=== PATIENT | female | born 1965 | race African-American/Black ===

== ENCOUNTER → 2016-09-06 | Outpatient (CLI) | payer OTHER ==
--- NOTE | ~2016-09-06 | MY11 ---
[facility] A Service of [facility] RADIOLOGY TEXT RESULTS PATIENT: JAYRO MATUTE LOCATION: [facility] : 61 UNIT #: [id number] AGE: [address]: Chinmay Gross MD SEX: F ORDER DR: [id number] [facility] [address] [facility] [place], [place] [address] [id number] O MR#: [id number] Acc #: [id number] NAME: JAYRO MATUTE : 1965 SEX: F STUDY DATE/TIME: 09/06/2016 11:45 UNIT: [facility] ROOM: STUDY DESCRIPTION: MY Mammogram Screening Dig Thomas Attending Physician: Chinmay Gross M.D. Referring Physician: Chinmay Gross M.D. Ordering Physician: Chinmay Gross M.D. Primary Care Physician: Chinmay Gross M.D. MEDICAL IMAGING REPORT This report is preliminary unless electronic signature is present EXAM Digital screening mammogram 09/06/2016, [facility] HISTORY 51-year-old woman no risk elevation. Annual screen. COMPARISON 02/13/2011, 06/24/2014 TECHNIQUE Digital imaging of each breast was completed utilizing multiple images to image the large breast structures. Review includes FDA-approved CAD device. FINDINGS Once again the breast parenchyma is fatty replaced. There are now several groupings of suspicious microcalcifications identified in the right breast. These were not present on prior images of 2005 and 2010 and very faintly imaged 2014. They will require additional imaging and sampling. This would include spot compression views along with a true lateral projection. Stereotactic guided sampling will, I am sure be indicated with this presentation. The left breast remains negative and stable. IMPRESSION Incomplete mammographic evaluation. Additional right breast imaging and tissue sampling is indicated. See full report. Patient's over the age of 40 are entered into a reminder system with target due date for the next mammogram. A result letter will be sent to the patient. BIRADS: 0 Needs additional imaging evaluate and/or prior mammograms for [facility] A Service [facility] RADIOLOGY TEXT RESULTS PATIENT: JAYRO MATUTE LOCATION: [facility] : 61 UNIT #: [id number] AGE: [address]: Chinmay Gross MD SEX: F ORDER DR: samantha. STAT * RESULT Dictated by... Nic Gutierres M.D. THIS IS AN ELECTRONICALLY VERIFIED REPORT Nic Gutierres M.D. at 09/06/2016 2:48 PM JBB/to TD: 09/06/2016 12:43 JOB #: [id number] MEDICAL IMAGING REPORT Page 1 of 1 COPY
== END | disposition home or self-care (01) ==
LOC: CWCC 11:10
DX: Z12.31 Encounter for screening mammogram for malignant neoplasm of breast (principal); R92.8 Other abnormal and inconclusive findings on diagnostic imaging of breast
CPT/HCPCS: G0202

== ENCOUNTER → 2016-09-20 | Outpatient (CLI) | payer OTHER ==
--- NOTE | ~2016-09-20 | MY22 ---
[facility] A Service of [facility] RADIOLOGY TEXT RESULTS PATIENT: JAYRO MATUTE LOCATION: [facility] : 61 UNIT #: [id number] AGE: [address]: Chinmay Gross MD SEX: F ORDER DR: [id number] [facility] [address]. [place], [place] [address] [id number] O MR#: [id number] Acc #: [id number] NAME: JAYRO MATUTE : 1965 SEX: F STUDY DATE/TIME: 09/20/2016 10:41 UNIT: [facility] ROOM: STUDY DESCRIPTION: MY BX Breast 1st Lesion Stereo Attending Physician: Chinmay Gross M.D. Ordering Physician: Chinmay Gross M.D. Primary Care Physician: Chinmay Gross M.D. MEDICAL IMAGING REPORT This report is preliminary unless electronic signature is present REVISED REPORT SEE ADDENDUM EXAM Stereotactic breast biopsy 09/20 INDICATIONS Abnormal suspicious calcifications in the right breast seen on mammogram today. Patient presents for tissue diagnosis. PROCEDURE Informed consent was obtained and time-out was performed. The patient was placed in the prone position on the stereotactic biopsy table. The breast was compressed cranial caudally. A cluster of microcalcifications were localized from an inferior approach. The skin was cleansed with a ChloraPrep. 1% lidocaine without epinephrine used for local anesthesia in the skin and deep tissues. A small skin incision was made. The 9-gauge Genesis biopsy needle was then advanced into the pre fire position. Pre fire images demonstrated appropriate needle heading toward the calcifications. The guide needle was then fired into biopsy position. Post-fire images also demonstrated appropriate needle placement. Then, multiple 9-gauge vacuum-assisted core biopsies were obtained at target depth in a concentric fashion. Multiple calcifications are seen within multiple specimens on the specimen radiograph. 1% lidocaine with epinephrine was infused through the needle during the biopsy. There are no immediate complications. Biopsy clip was left in place. It is in the expected location on the postprocedure mammogram. Postprocedure mammogram demonstrates no significant hematoma. IMPRESSION Successful stereotactic biopsy of suspicious calcifications in the lower inner right breast. Biopsy marker in the expected location. Multiple STS. [facility] A Service of [facility] & [facility] RADIOLOGY TEXT RESULTS PATIENT: JAYRO MATUTE LOCATION: [facility] : 61 UNIT #: [id number] AGE: [address]: Chinmay Gross MD SEX: F ORDER DR: calcifications are seen in the specimen. Dictated by... Nate Johnson Jr., M.D. Kristin TD: 09/20/2016 12:21 JOB #: [id number] ADDENDUM Pathology results have finally been provided to me. 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 Please see the full pathology report. Imaging results and pathology results are concordant. Surgical and oncological consultation recommended. Please note that there is a relatively wide potential area of disease involvement in the medial hemisphere of the breast. STAT * RESULT Dictated by... Nate Johnson Jr., M.D. THIS IS AN ELECTRONICALLY VERIFIED REPORT Nate Johnson Jr., M.D. at 10/24/2016 4:23 PM Dequan TD: 10/24/2016 08:08 JOB #: [id number] MEDICAL IMAGING REPORT Page 1 of 1 COPY
--- NOTE | ~2016-09-20 | MY8 ---
[facility] A Service of [facility] RADIOLOGY TEXT RESULTS PATIENT: JAYRO MATUTE LOCATION: [facility] : 61 UNIT #: [id number] AGE: [address]: Chinmay Gross MD SEX: F ORDER DR: [id number] [facility] [address] [facility]. [place], [place] [address] [id number] O MR#: [id number] Acc #: [id number] NAME: JAYRO MATUTE : 1965 SEX: F STUDY DATE/TIME: 09/20/2016 9:44 UNIT: [facility] ROOM: STUDY DESCRIPTION: MY Mammogram Dx Dig Rt Attending Physician: Chinmay Gross M.D. Ordering Physician: Chinmay Gross M.D. Primary Care Physician: Chinmay Gross M.D. MEDICAL IMAGING REPORT This report is preliminary unless electronic signature is present EXAM Diagnostic right mammogram 09/20 INDICATIONS Abnormal screening exam showing new suspicious calcifications in the right breast. FINDINGS Magnification views of the right breast were obtained in addition to true lateral view. The study is reviewed with an FDA-approved CAD device. Comparison is made with 09/06/2016 and 06/24/2014. Images confirm the presence of multiple suspicious calcifications in the right breast. The groups of calcifications are multifocal. Many of these are clearly ductal in etiology and likely reflect DCIS. The calcifications overall involve relatively large area of the right breast. They involve the majority of the inferior hemisphere. Biopsy is recommended and will be performed today. IMPRESSION Multifocal suspicious calcifications in the right breast involving a relatively large portion of at least the inferior hemisphere. Stereotactic biopsy is recommended and will be performed today. Patients over the age of 40 are entered into a reminder system with target due date for the next mammogram. A result letter will also be sent to the patient. BIRADS: 5 High suggestive of malignancy; appropriate action should be taken. Dictated by... Nate Johnson Jr., M.D. THIS IS AN ELECTRONICALLY VERIFIED REPORT [facility] A Service of [facility] RADIOLOGY TEXT RESULTS PATIENT: JAYRO MATUTE LOCATION: [facility] : 61 UNIT #: [id number] AGE: [address]: Chinmay Gross MD SEX: F ORDER DR: Nate Johnson Jr., M.D. at 09/20/2016 4:41 PM BRITT/santi TD: 09/20/2016 11:01 JOB #: [id number] MEDICAL IMAGING REPORT Page 1 of 1 COPY
== END | disposition home or self-care (01) ==
LOC: CMAM 08:24
PROC: 0HBT3ZX Excision of Right Breast, Percutaneous Approach, Diagnostic (ICD-10-PCS; principal; 2016-09-20)
DX: D05.81 Other specified type of carcinoma in situ of right breast (principal); R92.1 Mammographic calcification found on diagnostic imaging of breast; Z17.0 Estrogen receptor positive status [ER+]
CPT/HCPCS: 88305; G0204; G0206

== ENCOUNTER → 2016-11-07 | Outpatient (CLI) | payer OTHER ==
--- NOTE | ~2016-11-07 | MR21 ---
[facility] A Service of [facility] RADIOLOGY TEXT RESULTS PATIENT: JAYRO MATUTE LOCATION: [facility] : 61 UNIT #: [id number] AGE: [address]: Dinesh Rodriguez MD SEX: F ORDER DR: [id number] [place] [id number] O MR#: [id number] Acc #: [id number] NAME: JAYRO MATUTE : 1965 SEX: F STUDY DATE/TIME: 11/07/2016 14:21 UNIT: [facility] ROOM: STUDY DESCRIPTION: MR Breast WWo Contrast Thomas Attending Physician: Dinesh Rodriguez M.D. Referring Physician: Dinesh Rodriguez M.D. Ordering Physician: Dinesh Rodriguez M.D. Primary Care Physician: Chinmay Gross M.D. MRI CENTER REPORT This report is preliminary unless electronic signature is present. EXAMINATION 1. MRI of bilateral breasts with and without contrast. 2. Post processing including computer algorithm analysis of MRI data for lesion detection/characterization, pharmacokinetic analysis, with further physician review for interpretation of breast MRI. COMPARISON: Stereotactic biopsy of the right breast as well as right diagnostic mammogram and post biopsy right diagnostic mammogram dated September 20, 2016 as well as screening mammograms dated September 06, 2016 and June 24, 2014. INDICATION: 51-year-old female with recent diagnosis of breast DCIS. The patient had extensive microcalcifications in the right breast and evaluation of extent of malignancy was indicated prior to plan of surgical therapy. TECHNIQUE Axial bilateral T1, STIR, T1 fat saturation precontrast and T1 fat saturation postcontrast dynamic sequences were obtained in addition to sagittal bilateral VIBE precontrast and VIBE postcontrast sequences. Axial post contrast digital subtraction series were provided in addition to 3-D MIPs of each breast. CONTRAST 20 mL MultiHance. FINDINGS Breasts are almost entirely fat. There is minimal bilateral background breast enhancement. Biopsy clip denoting the patient's known DCIS is in the 3 o'clock middle third of the right breast at the posterior aspect of the microcalcifications of concern. This grouping of microcalcifications is pleomorphic with linear segmental distribution. These STS. [facility] A Service of [facility] RADIOLOGY TEXT RESULTS PATIENT: JAYRO MATUTE LOCATION: [facility] : 61 UNIT #: [id number] AGE: [address]: Dinesh Rodriguez MD SEX: F ORDER DR: microcalcifications do not appear to be entirely contiguous and there is considerable distance between the anterior most and posterior most microcalcifications in this cluster of microcalcifications which localizes to approximately the 3 o'clock position in the middle third extending to the 6 o'clock position in the anterior third. On mammography, the dominant cluster of biopsy-proven DCIS measures 9.2 cm AP x 5 cm transverse x approximately 5.2 cm craniocaudal. Spanning the 6 o'clock middle and anterior thirds of the right breast on mammography there is a separate linear distributed pleomorphic cluster of microcalcifications which has some tight and some loose grouping but the entire extent of microcalcifications is suspicious for DCIS extends 8.5 cm AP x approximately 2.2 cm craniocaudal x as much as 2.3 cm transverse. These are not very distant from the biopsy-proven DCIS and in conglomerate, these 2 clusters of microcalcifications measure up to approximately 9.3 cm AP x 8.5 cm transverse x approximately 7.6 cm craniocaudal. On MRI, there is corresponding segmentally distributed linear non masslike enhancement. This has subthreshold initial enhancement and measures 6.3 cm transverse on MRI by as much as 4.4 cm AP, and as much as 2.1 cm cranial caudal spanning from approximately the 3 o'clock to the 6 o'clock and over to the 9 o'clock position of the middle third of the right breast. This all has subthreshold enhancement and likely underestimates extent of disease as compared to mammography. There are no discrete enhancing masses in either breast. There is no suspicious non masslike enhancement in the left breast. There is no axillary or internal mammary adenopathy. No enhancing lesions within the sternum or visualized liver. IMPRESSION 1. No MR evidence of malignancy in the left breast. 2. Findings are most consistent with multifocal right breast DCIS based on the patient's mammogram. Please note that MRI today under estimates the extent of suspected malignancy which is thought to be quite extensive as described above and likely precludes the possibility of breast conservation. If breast conservation is desired, stereotactic biopsy of the most distant suspicious microcalcifications from the known biopsy-proven DCIS is recommended. 3. No axillary or internal mammary adenopathy. No enhancing lesions within the liver or sternum. BIRADS: 6 - Known biopsy proven malignancy. Dictated by... Trung Johnson M.D. THIS IS AN ELECTRONICALLY VERIFIED REPORT Trung Johnson M.D. at 11/14/2016 9:05 AM [facility] A Service of [facility] RADIOLOGY TEXT RESULTS PATIENT: JAYRO MATUTE LOCATION: [facility] : 61 UNIT #: [id number] AGE: [address]: Dinesh Rodriguez MD SEX: F ORDER DR: RAVINDRA/lorraine TD: 11/14/2016 07:58 JOB #: [id number] MRI CENTER REPORT Page 1 of 1
== END | disposition home or self-care (01) ==
LOC: SMRI 12:45
DX: D05.10 Intraductal carcinoma in situ of unspecified breast (principal)
CPT/HCPCS: 0159T; A9581; C8908